=== PATIENT | male | born 1960 | race Caucasian/White ===

== ENCOUNTER 2018-12-02 14:47 | Inpatient (IN) | payer MEDICARE ==
--- NOTE | 2018-12-02 15:19 | ED ---
General Adult HPI - General Chief complaint: Skin/Abscess/Foreign Body Stated complaint: Rash Time Seen by Provider: 12/02/18 15:01 Source: patient Mode of arrival: ambulatory Limitations: no limitations - History of Present Illness Initial comments: Dictation was produced using [employer] dictation software. please excuse any grammatical, word or spelling errors. Chief Complaint: 58-year-old male presents with chief complaint of rash. History of Present Illness: 88-year-old male who presents with a rash since last night. Patient states the rash is localized to his bilateral axilla's and bilateral groins. She has no known changes in his medications recently. Patient has no other symptoms at this time. He states the rashes localized to these areas. He states they're pruritic. Denies any abdominal pain. Denies a ny rashes in the mouth. Patient denies ever having had a rash like this in the past The ROS documented in this emergency department record has been reviewed and confirmed by me. Those systems with pertinent positive or negative responses have been documented in the HPI. All other systems are other negative and/or noncontributory. PHYSICAL EXAM: General Impression: Alert and oriented x3, not in acute distress HEENT: Normocephalic atraumatic, extra-ocular movements intact, pupils equal and reactive to light bilaterally, mucous membranes moist. Cardiovascular: Heart regular rate and rhythm, S1&S2 audible, no murmurs, rubs or gallops Chest: Lungs clear to auscultation bilaterally, no rhonchi, no wheeze, no rales Abdomen: Bowel sounds present, abdomen soft, non-tender, non-distended, no organomegaly Musculoskeletal: Pulses present and equal in all extremities, no peripheral edema Motor: no focal deficits noted Neurological: CN II-XII grossly intact, no focal motor or sensory deficits noted Skin: Erythematous well-circumscribed lesions localized to the bilateral axilla causing groins. They do appear to be slightly targetoid. Psych: Normal affect and mood ED course: 58-year-old male presents with acute rash. Clinical presentation consistent with urticaria versus erythema multiforme minor signs upon arrival shows blood pressure 87/50, rest of vital signs within acceptable limits. Review blood pressure confirms low blood pressure. Laboratory evaluation obtained. Patient is leukocytosis 0.4, quite panel unremarkable. Metabolic panel is negative. Patient does have mild hyperglycemia 157. Urinalysis shows no significant findings. Chest x-ray is nonacute. Given history of beta kevan ingestion 1 hour prior to arrival there is concern of beta kevan toxicity. Patient given intravenous fluids, glucagon atropine. His blood pressures improved. Patient is otherwise normotensive. Patient case discussed with Dr. Joie [facility] who is willing to accept patients care. We'll admit patient to cardiac telemetry. I believe his rash is secondary to urticaria versus erythema multiforme minor. Highly doubt that patient's rash somehow related to his hypotension and bradycardia. Cardiology will be consulted. EKG interpretation: Ventricular rate 40, sinus bradycardia, AL interval 184, care is 104, QTc 502. - Related Data Home Medications Medication Instructions Recorded Confirmed Atorvastatin [Lipitor] 10 mg PO DAILY 12/02/18 12/02/18 Hydrocodone/Acetaminophen [[place] 1 tab PO TID PRN 12/02/18 12/02/18 10-325] Metoprolol Tartrate [Lopressor] 50 mg PO BID 12/02/18 12/02/18 Multivitamins, Thera [Multivitamin 1 tab PO DAILY 12/02/18 12/02/18 (formulary)] Pseudoephedrine HCl [Sudafed] 30 mg PO Q4HR PRN 12/02/18 12/02/18 Allergies Allergy/AdvReac Type Severity Reaction Status Date / Time No Known Allergies Allergy Verified 12/02/18 14:58 Review of Systems ROS Statement: Those systems with pertinent positive or pertinent negative responses have been documented in the HPI. ROS Other: All systems not noted in ROS Statement are negative. Past Medical History Past Medical History: GERD/Reflux, Hypertension Additional Past Medical History / Comment(s): DDD History of Any Multi-Drug Resistant Organisms: None Reported Past Surgical History: Orthopedic Surgery Past Psychological History: No Psychological Hx Reported Smoking Status: Former smoker Past Alcohol Use History: None Reported Past Drug Use History: None Reported General Exam Limitations: no limitations Course Vital Signs 12/02/18 14:56 Temperature 98.2 F Pulse Rate 78 Respiratory 18 Rate Blood Pressure 87/58 O2 Sat by Pulse 95 Oximetry Medical Decision Making - Lab Data Result diagrams: 12/02/18 16:12 12/02/18 16:12 Lab Results 12/02/18 12/02/18 12/02/18 Range/Units 16:12 16:12 16:12 WBC 17.4 H (3.8-10.6) k/uL RBC 4.65 (4.30-5.90) m/uL Hgb 15.0 (13.0-17.5) gm/dL Hct 44.2 (39.0-53.0) % MCV 95.0 (80.0-100.0) fL MCH 32.3 (25.0-35.0) pg MCHC 34.0 (31.0-37.0) g/dL RDW 12.9 (11.5-15.5) % Plt Count 229 (150-450) k/uL Neutrophils % 89 % Lymphocytes % 6 % Monocytes % 4 % Eosinophils % 0 % Basophils % 0 % Neutrophils # 15.6 H (1.3-7.7) k/uL Lymphocytes # 1.0 (1.0-4.8) k/uL Monocytes # 0.6 (0-1.0) k/uL Eosinophils # 0.1 (0-0.7) k/uL Basophils # 0.1 (0-0.2) k/uL PT 10.2 (9.0-12.0) sec INR 0.9 (<1.2) APTT 22.5 (22.0-30.0) sec Sodium 136 L (137-145) mmol/L Potassium 4.0 (3.5-5.1) mmol/L Chloride 105 (98-107) mmol/L Carbon Dioxide 23 (22-30) mmol/L Anion Gap 8 mmol/L BUN 14 (9-20) mg/dL Creatinine 1.25 (0.66-1.25) mg/dL Est GFR (CKD-EPI)AfAm 74 (>60 ml/min/1.73 sqM) Est GFR (CKD-EPI)NonAf 64 (>60 ml/min/1.73 sqM) Glucose 157 H (74-99) mg/dL Calcium 8.7 (8.4-10.2) mg/dL Magnesium (1.6-2.3) mg/dL Urine Color Urine Appearance (Clear) Urine pH (5.0-8.0) Ur Specific Adams (1.001-1.035) Urine Protein (Negative) Urine Glucose (UA) (Negative) Urine Ketones (Negative) Urine Blood (Negative) Urine Nitrite (Negative) Urine Bilirubin (Negative) Urine Urobilinogen (<2.0) mg/dL Ur Leukocyte Esterase (Negative) Urine RBC (0-5) /hpf Urine WBC (0-5) /hpf Ur Squamous Epith Cells (0-4) /hpf Urine Mucus (None) /hpf 12/02/18 12/02/18 Range/Units 16:12 16:17 WBC (3.8-10.6) k/uL RBC (4.30-5.90) m/uL Hgb (13.0-17.5) gm/dL Hct (39.0-53.0) % MCV (80.0-100.0) fL MCH (25.0-35.0) pg MCHC (31.0-37.0) g/dL RDW (11.5-15.5) % Plt Count (150-450) k/uL Neutrophils % % Lymphocytes % % Monocytes % % Eosinophils % % Basophils % % Neutrophils # (1.3-7.7) k/uL Lymphocytes # (1.0-4.8) k/uL Monocytes # (0-1.0) k/uL Eosinophils # (0-0.7) k/uL Basophils # (0-0.2) k/uL PT (9.0-12.0) sec INR (<1.2) APTT (22.0-30.0) sec Sodium (137-145) mmol/L Potassium (3.5-5.1) mmol/L Chloride (98-107) mmol/L Carbon Dioxide (22-30) mmol/L Anion Gap mmol/L BUN (9-20) mg/dL Creatinine (0.66-1.25) mg/dL Est GFR (CKD-EPI)AfAm (>60 ml/min/1.73 sqM) Est GFR (CKD-EPI)NonAf (>60 ml/min/1.73 sqM) Glucose (74-99) mg/dL Calcium (8.4-10.2) mg/dL Magnesium 2.0 (1.6-2.3) mg/dL Urine Color Yellow Urine Appearance Clear (Clear) Urine pH 6.5 (5.0-8.0) Ur Specific Adams 1.019 (1.001-1.035) Urine Protein Trace H (Negative) Urine Glucose (UA) Negative (Negative) Urine Ketones Negative (Negative) Urine Blood Small H (Negative) Urine Nitrite Negative (Negative) Urine Bilirubin Negative (Negative) Urine Urobilinogen <2.0 (<2.0) mg/dL Ur Leukocyte Esterase Negative (Negative) Urine RBC 9 H (0-5) /hpf Urine WBC 1 (0-5) /hpf Ur Squamous Epith Cells <1 (0-4) /hpf Urine Mucus Few H (None) /hpf Disposition Clinical Impression: Hypotension, Bradycardia, Rash Disposition: ADMITTED IP TO THIS HOSP Condition: Fair Referrals: Dillon Maharaj DO [Primary Care Provider] - 1-2 days Decision Time: 17:49
[2018-12-02] MEDS ORDERED: SODIUM CHLORIDE 0.9% 1,000 ML IV STA (16:04)
[2018-12-02 16:29] LABS: Basophils # (A) 0.1 k/uL (0-0.2); Basophils % (A) 0 %; Eosinophils # (A) 0.1 k/uL (0-0.7); Eosinophils % (A) 0 %; HCT 44.2 % (39.0-53.0); Lymphocytes % (A) 6 %; MCH 32.3 pg (25.0-35.0); Mean Platelet Volume 6.8; Monocytes # (A) 0.6 k/uL (0-1.0); Monocytes % (A) 4 %; Neutrophils # (A) 15.6 k/uL (1.3-7.7); Neutrophils % (A) 89 %; Platelet Count 229 k/uL (150-450); RBC 4.65 m/uL (4.30-5.90); RDW 12.9 % (11.5-15.5); WBC 17.4 k/uL (3.8-10.6)
[2018-12-02 16:38] LABS: INR 0.9 (<1.2); Partial Thromboplastin Time 22.5 sec (22.0-30.0); Prothrombin Time 10.2 sec (9.0-12.0)
[2018-12-02] MEDS ORDERED: METOCLOPRAMIDE 5 MG/ML 2 ML VIAL IVP STA (16:39)
[2018-12-02] MEDS ORDERED: GLUCAGON 1 MG/ML VIAL IVP STA (16:39)
[2018-12-02] MEDS ORDERED: ATROPINE SULFATE 0.1 MG/ML 10ML SYRINGE IV STA (16:40)
[2018-12-02 16:44] LABS: Calcium 8.7 mg/dL (8.4-10.2)
[2018-12-02 17:07] LABS: Appearance,Urine Clear (Clear); Bilirubin,Urine Negative (Negative); Blood,Urine Small (Negative); Color,Urine Yellow; Glucose,Urine (UA) Negative (Negative); Ketones,Urine Negative (Negative); Leukocyte Esterase,Urine Negative (Negative); Mucus,Urine Few /hpf; Nitrite,Urine Negative (Negative); PH, Urine 6.5 (5.0-8.0); Protein,Urine Trace (Negative); RBC,Urine 9 /hpf (0-5); Specific Gravity,Urine 1.019 (1.001-1.035); Squamous Epithelial Cell,Urine <1 /hpf (0-4); Urobilinogen,Urine <2.0 mg/dL (<2.0); WBC,Urine 1 /hpf (0-5)
--- NOTE | 2018-12-02 17:20 | XR ---
EXAMINATION TYPE: XR chest 2V DATE OF EXAM: 12/02/2018 COMPARISON: NONE HISTORY: Abdominal rash. Hypotension. TECHNIQUE: Frontal and lateral views of the chest are obtained. FINDINGS: Heart and mediastinum are normal. Lungs are clear. Diaphragm is normal. There is minor spu rring in the thoracic spine. There are chest leads. IMPRESSION: No active cardiopulmonary disease. Normal heart.
[2018-12-02] MEDS ORDERED: ACETAMINOPHEN TAB 325 MG TAB PO PRN (17:50)
[2018-12-02] MEDS ORDERED: NALOXONE 0.4 MG/ML 1 ML VIAL IV PRN (17:50)
[2018-12-02] MEDS: SODIUM CHLORIDE 0.9% 1,000 ML IV SCH (18:03)
[2018-12-02] MEDS ORDERED: HYDROcodone/APAP 5-325MG 1 EACH TAB PO STA (19:32)
[2018-12-02 21:23] VITALS: BMI 33.0
--- NOTE | 2018-12-02 23:52 | P.HPIM ---
History of Present Illness H&P Date: 12/02/18 The patient is a 58 yo M with a PMH of HTN, HLD, spinal DJD (on [place] 10 at home) presented to the ED w/ complaints of a pruritic rash. The patient reports that he suddenly developed an intensely pruritic rash over his bilateral axilla yesterday at around 5 pm. The rash was painless. He reports never having a similar rash in the past. He denied using any new skin products or any new medications. The patient then earlier today noted a similar rash in his groin region which was also pruritic along with scrotal swelling. He denied testicular, penile pain, or urinary complaints. Denied penile discharge or any other cutaneous eruption. Denied mouth ulcers or oral pain. The patient reports using multiple antibiotic ointment creams that he had at home without much relief of his symptoms. The patient noted feeling somewhat ill earlier today prior to coming into the ED. His at the bedside reported that his lips were pale. He denied chest pain, SOB, cough, nausea, vomiting, or abdominal pain. Denied sick contacts or recent travel. The patient was noted to be bradycardic in the ED w/ the lowest documented HR of 47 along with hypotension (86/49). He reports taking Lopressor at home for his HTN which he has been on for years. He denied any prior hx of bradycardia or hypotension. The patient underwent an extensive evaluation in the ED w/ EKG showing sinus bradycardia at 48 bpm along with prolonged QTC. Chest x-ray was unremarkable and a UA revealed some RBCs with an FOBT negative. WBC count was 17.4, hemoglobin 15, platelets 229, sodium 136, potassium 4.0, BUN 14, creatinine 1.5. Review of Systems Pertinent positives and negatives as discussed in HPI, a complete review of systems was performed and all other systems are negative. Past Medical History Past Medical History: GERD/Reflux, Hypertension Additional Past Medical History / Comment(s): DDD History of Any Multi-Drug Resistant Organisms: None Reported Past Surgical History: Orthopedic Surgery Additional Past Surgical History / Comment(s): knee surgery Past Anesthesia/Blood Transfusion Reactions: No Reported Reaction Past Psychological History: Anxiety Smoking Status: Former smoker Past Alcohol Use History: None Reported Past Drug Use History: None Reported - Past Family History Father Family Medical History: No Reported History Mother Family Medical History: COPD Additional Family Medical History / Comment(s): from septic shock Medications and Allergies Home Medications Medication Instructions Recorded Confirmed Type Atorvastatin [Lipitor] 10 mg PO DAILY 12/02/18 12/02/18 History Hydrocodone/Acetaminophen [[place] 1 tab PO TID PRN 12/02/18 12/02/18 History 10-325] Metoprolol Tartrate [Lopressor] 50 mg PO BID 12/02/18 12/02/18 History Multivitamins, Thera [Multivitamin 1 tab PO DAILY 12/02/18 12/02/18 History (formulary)] Pseudoephedrine HCl [Sudafed] 30 mg PO Q4HR PRN 12/02/18 12/02/18 History Allergies Allergy/AdvReac Type Severity Reaction Status Date / Time No Known Allergies Allergy Verified 12/02/18 14:58 Physical Exam Vitals: Vital Signs Temp Pulse Pulse Resp BP BP Pulse Ox 12/02/18 21:12 98.7 F 51 L 16 118/61 96 12/02/18 20:57 98.3 F 53 L 16 115/62 96 12/02/18 19:00 57 L 18 120/72 98 12/02/18 18:00 62 18 125/72 98 12/02/18 17:52 60 16 114/67 98 12/02/18 17:45 98.2 F 56 L 16 114/67 98 12/02/18 17:30 53 L 16 103/68 98 12/02/18 17:15 60 16 104/61 98 12/02/18 17:00 50 L 16 110/59 98 12/02/18 16:45 58 L 16 106/61 98 12/02/18 16:30 49 L 16 84/52 98 12/02/18 16:15 48 L 16 92/50 98 12/02/18 15:57 50 L 16 84/44 98 12/02/18 15:51 47 L 18 86/49 98 12/02/18 14:56 98.2 F 78 18 87/58 95 Intake and Output 12/02/18 12/02/18 12/03/18 14:59 22:59 06:59 Intake Total 100 Balance 100 Intake: IV 100 Sodium Chloride 0.9% 1, 100 000 ml @ 100 mls/hr IV . Q10H [facility] Rx#:[id number] Other: Weight 83.915 kg General: non toxic, no distress, appears at stated age, obese Derm: Targetoid raised mildly erythematous lesions involving both axilla and groin, non-tender, no skin breakdown noted, scrotal swelling w/ no tenderness, no penile discharge or lesions noted Head: atraumatic, normocephalic, symmetric Eyes: EOMI, no lid lag, anicteric sclera, pupils equal round reactive to light ENT: Nose and ears atraumatic, no thrush, no pharyngeal erythema Neck: No thyromegaly, no cervical lymphadenopathy, trachea midline, supple Mouth: no lip lesion, mucus membranes moist Cardiovascular: S1S2 reg, bradycardia, no murmur, positive posterior tibial pulse bilateral, no edema, capillary refill less than 2 seconds Lungs: CTA bilateral, no rhonchi, no rales , no accessory muscle use Abdominal: soft, nontender to palpation, no guarding, no appreciable organomegaly, normal bowel sounds Ext: no gross muscle atrophy, muscle strength 5 out of 5 in all 4 extremities grossly, no contractures, Neuro: CN II-XI grossly intact, light touch intact all 4 extremities, finger to nose within normal limits, Psych: Alert, oriented, appropriate affect Results CBC & Chem 7: 12/02/18 16:12 12/02/18 16:12 Labs: Abnormal Lab Results - Last 24 Hours (Table) 12/02/18 12/02/18 12/02/18 Range/Units 16:12 16:12 16:17 WBC 17.4 H (3.8-10.6) k/uL Neutrophils # 15.6 H (1.3-7.7) k/uL Sodium 136 L (137-145) mmol/L Glucose 157 H (74-99) mg/dL Urine Protein Trace H (Negative) Urine Blood Small H (Negative) Urine RBC 9 H (0-5) /hpf Urine Mucus Few H (None) /hpf Thrombosis Risk Factor Assmnt - Choose All That Apply Any of the Below Risk Factors Present?: Yes Each Factor Represents 1 point: Age 41-60 years, Obesity (BMI >25) Other Risk Factors: No Other congenital or acquired thrombophilia - If yes, enter type in comment: No Thrombosis Risk Factor Assessment Total Risk Factor Score: 2 Thrombosis Risk Factor Assessment Level: Low Risk Assessment and Plan Plan: Rash, likely erythema multiforme of unknown etiology -Will give topical steroids and anti-histamines -Monitor rash for now Bradycardia and hypotension -Improved, s/p atropine -Monitor for now, possibly secondary to erythema multiforme -No other obvious source of infection noted -Will DC Lopressor for now -C/w IVFs Leukocytosis -Likely secondary to EM -Monitor CBC for now -No clear source of infection noted HLD -C/w home meds DVT prophylaxis -Heparin The patient is admitted with an anticipated greater than 2 midnight stay for evaluation of erythema multiforma CODE STATUS: Full Code Discussed with: Patient, Anticipated discharge date: 2-[address]: Home A total of 35 minutes was spent on the care of this complex patient more than 50% of the time was spent in counseling and care coordination.
[2018-12-02] MEDS ORDERED: LORATADINE 10 MG TAB PO STA (23:53)
[2018-12-03] MEDS: TRIAMCINOLONE ACET 0.1% OINTMENT 15 GM TUBE TOPICAL SCH ×4 (00:40→21:13)
[2018-12-03] MEDS: HEPARIN SODIUM,PORCINE 5,000 UNIT/ML 1 ML VIAL SQ SCH ×4 (00:40→23:12)
[2018-12-03 06:53] LABS: African American GFR (CKD) >90 (>60 ml/min/1.73 sqM); Anion Gap 9 mmol/L; Blood Urea Nitrogen 19 mg/dL (9-20); Calcium 8.3 mg/dL (8.4-10.2); Carbon Dioxide 22 mmol/L (22-30); Chloride 107 mmol/L (98-107); Glucose 106 mg/dL (74-99); Potassium 3.3 mmol/L (3.5-5.1); Sodium 138 mmol/L (137-145)
[2018-12-03 06:55] LABS: HCT 38.1 % (39.0-53.0); MCH 32.5 pg (25.0-35.0); MCHC 34.1 g/dL (31.0-37.0); MCV 95.2 fL (80.0-100.0); Mean Platelet Volume 7.1; Platelet Count 197 k/uL (150-450); WBC 12.6 k/uL (3.8-10.6)
--- NOTE | 2018-12-03 07:53 | P.CRDCN ---
History of Present Illness History of present illness: This is Claribel Garcia PA-C dictating a consult on this patient The patient was interviewed and examined by me as well as by Dr. Tan Case discussed with Dr. Tan and he agrees with the plan of care IMPRESSION / ASSESSMENT: PLAN: HPI Patient is a 58-year-old male who presented with a rash. On presentation he was found to be hypotensive and bradycardic, pulse is in the high 40s to low 50s and blood pressures in the 80s over 40s. She takes metoprolol titrate 50 mg twice a day at home. EKG showed sinus bradycardia, converted T waves in the lateral precordial leads. Chest x-ray was negative for acute process. Blood pressure has improved, he has been in the 120s and 130s systolic over 50s to 60s diastolic. Pulses been in the 60s. ROS: No fevers, chills or rigors, no cough, phlegm or expectoration, no nausea, vomiting or diarrhea, no hematuria, dysuria, no musculoskeletal complaints, no strokes or seizures, Positive for rash EXAMINATION: REVIEW OF LABS, ECG & MEDICAL DATA WBC 12.6, hemoglobin 13, platelets 197, potassium 3.3, BUN 19, creatinine 0.87 Past Medical History Past Medical History: GERD/Reflux, Hypertension Additional Past Medical History / Comment(s): DDD History of Any Multi-Drug Resistant Organisms: None Reported Past Surgical History: Orthopedic Surgery Additional Past Surgical History / Comment(s): knee surgery Past Anesthesia/Blood Transfusion Reactions: No Reported Reaction Past Psychological History: Anxiety Smoking Status: Former smoker Past Alcohol Use History: None Reported Past Drug Use History: None Reported - Past Family History Father Family Medical History: No Reported History Mother Family Medical History: COPD Additional Family Medical History / Comment(s): from septic shock Medications and Allergies Home Medications Medication Instructions Recorded Confirmed Type Atorvastatin [Lipitor] 10 mg PO DAILY 12/02/18 12/02/18 History Hydrocodone/Acetaminophen [[place]sea 1 tab PO TID PRN 12/02/18 12/02/18 History 10-325] Metoprolol Tartrate [Lopressor] 50 mg PO BID 12/02/18 12/02/18 History Multivitamins, Thera [Multivitamin 1 tab PO DAILY 12/02/18 12/02/18 History (formulary)] Pseudoephedrine HCl [Sudafed] 30 mg PO Q4HR PRN 12/02/18 12/02/18 History Allergies Allergy/AdvReac Type Severity Reaction Status Date / Time No Known Allergies Allergy Verified 12/02/18 14:58 Physical Exam Vitals: Vital Signs Temp Pulse Pulse Resp BP BP Pulse Ox 12/03/18 07:38 97.7 F 78 16 129/59 95 12/03/18 04:00 99.3 F 63 17 130/68 96 12/03/18 00:00 52 L 16 118/58 97 12/02/18 21:12 98.7 F 51 L 16 118/61 96 12/02/18 20:57 98.3 F 53 L 16 115/62 96 12/02/18 19:00 57 L 18 120/72 98 12/02/18 18:00 62 18 125/72 98 12/02/18 17:52 60 16 114/67 98 12/02/18 17:45 98.2 F 56 L 16 114/67 98 12/02/18 17:30 53 L 16 103/68 98 12/02/18 17:15 60 16 104/61 98 12/02/18 17:00 50 L 16 110/59 98 12/02/18 16:45 58 L 16 106/61 98 12/02/18 16:30 49 L 16 84/52 98 12/02/18 16:15 48 L 16 92/50 98 12/02/18 15:57 50 L 16 84/44 98 12/02/18 15:51 47 L 18 86/49 98 12/02/18 14:56 98.2 F 78 18 87/58 95 Intake and Output 12/02/18 12/03/18 12/03/18 22:59 06:59 14:59 Intake Total 100 Output Total 450 Balance 100 -450 Intake: IV 100 Sodium Chloride 0.9% 1, 100 000 ml @ 100 mls/hr IV . Q10H [facility] Rx#:[id number] Output: Urine 450 Other: Voiding Method Toilet Weight 87.3 kg Results 12/03/18 06:04 12/03/18 06:04 Coagulation 12/02/18 Range/Units 16:12 PT 10.2 (9.0-12.0) sec APTT 22.5 (22.0-30.0) sec CBC 12/02/18 12/03/18 Range/Units 16:12 06:04 WBC 17.4 H 12.6 H (3.8-10.6) k/uL RBC 4.65 4.00 L (4.30-5.90) m/uL Hgb 15.0 13.0 (13.0-17.5) gm/dL Hct 44.2 38.1 L (39.0-53.0) % Plt Count 229 197 (150-450) k/uL Comprehensive Metabolic Panel 12/02/18 12/03/18 Range/Units 16:12 06:04 Sodium 136 L 138 (137-145) mmol/L Potassium 4.0 3.3 L (3.5-5.1) mmol/L Chloride 105 107 (98-107) mmol/L Carbon Dioxide 23 22 (22-30) mmol/L BUN 14 19 (9-20) mg/dL Creatinine 1.25 0.87 (0.66-1.25) mg/dL Glucose 157 H 106 H (74-99) mg/dL Calcium 8.7 8.3 L (8.4-10.2) mg/dL Current Medications Generic Name Dose Route Start Last Admin Trade Name Freq PRN Reason Stop Dose Admin Acetaminophen 650 mg 12/02/18 17:50 Tylenol Tab PO Q6HR PRN Mild Pain or Fever > 100.5 Atorvastatin Calcium 10 mg 12/03/18 09:00 Lipitor PO DAILY KAYLEIGH Heparin Sodium (Porcine) 5,000 unit 12/03/18 00:00 12/03/18 00:40 Heparin SQ 5,000 unit Q8HR KAYLEIGH Administration Sodium Chloride 1,000 mls @ 100 mls/hr 12/02/18 18:00 12/02/18 18:03 Saline 0.9% IV 100 mls/hr .Q10H KAYLEIGH Administration Loratadine 10 mg 12/03/18 09:00 Claritin PO DAILY PRN Allergy Symptoms Naloxone HCl 0.2 mg 12/02/18 17:50 Narcan IV Q2M PRN Opioid Reversal Triamcinolone Acetonide 1 applic 12/03/18 00:00 12/03/18 00:40 Kenalog TOPICAL 1 applic BID KAYLEIGH Administration Intake and Output 12/02/18 12/03/18 12/03/18 22:59 06:59 14:59 Intake Total 100 Output Total 450 Balance 100 -450 Intake: IV 100 Sodium Chloride 0.9% 1, 100 000 ml @ 100 mls/hr IV . Q10H [facility] Rx#:[id number] Output: Urine 450 Other: Voiding Method Toilet Weight 87.3 kg 12/03/18 06:04 12/03/18 06:04
[2018-12-03] MEDS ORDERED: POTASSIUM CHLORIDE ER 20 MEQ TAB.ER PO STA (08:26)
[2018-12-03] MEDS: ATORVASTATIN 10 MG TAB PO SCH (08:39)
[2018-12-03] MEDS: SODIUM CHLORIDE 0.9% 1,000 ML IV SCH ×2 (08:39→11:44)
[2018-12-03] MEDS ORDERED: ONDANSETRON 4 MG/2 ML VIAL IVP PRN (08:46)
[2018-12-03] MEDS: PANTOPRAZOLE 40 MG TABLET PO SCH (08:52)
[2018-12-03] MEDS: CALCIUM CARBONATE 500 MG CHEWABLE PO PRN ×2 (08:52→16:44)
[2018-12-03] MEDS ORDERED: LORATADINE 10 MG TAB PO PRN (09:00)
--- NOTE | 2018-12-03 12:34 | P.CRDCN ---
<Claribel Garcia - Last Filed: 12/03/18 12:24> History of Present Illness History of present illness: This is Claribel Garcia PA-C dictating a consult on this patient The patient was interviewed and examined by me as well as by Dr. Tan Case discussed with Dr. Tan and he agrees with the plan of care IMPRESSION / ASSESSMENT: Bradycardia and hypotension likely secondary to metoprolol, blood pressure and heart rate improved with metoprolol on hold Hypertension, blood pressure stable without the metoprolol Dyslipidemia TSH normal PLAN: discontinue metoprolol If his blood pressure is elevated without the metoprolol, consider starting KWAKU inhibitor Outpatient echocardiogram for evaluation of cardiac murmur HPI Patient is a 58-year-old male with a past medical history of hypertension and dyslipidemia who presented with a rash. On presentation he was found to be hypotensive and bradycardic, pulse is in the high 40s to low 50s and blood pressures in the 80s over 40s. The patient felt slightly dizzy at that time. He takes metoprolol titrate 50 mg twice a day at home. States that he was increased from 25 mg twice a day to 50 mg twice a day a few months ago and has felt fatigued since. He has also had intermittent dizzy spells. No syncope. No chest pain or shortness of breath. EKG showed sinus bradycardia, inverted T waves in the lateral precordial leads. Chest x-ray was negative for acute process. His metoprolol has been held. Blood pressure has improved, he has been in the 120s and 130s systolic over 50s to 60s diastolic. Heart rate has been in the 60s-80s. Patient seen and examined sitting in bed. States his rash is getting worse. Denies any dizziness, lightheadedness, chest pain or shortness of breath. Has been getting up and walking around without any dizzi ness. No syncopal spells. Patient is a nondiabetic and has no family history of heart disease ROS: No fevers, chills or rigors, no cough, phlegm or expectoration, no nausea, vomiting or diarrhea, no hematuria, dysuria, no musculoskeletal complaints, no strokes or seizures, Positive for rash EXAMINATION: Temperature 97.7F, pulse 78, respirations exceeding, blood pressure 129/59, oxygen saturation 95% on room air Patient seen and examined sitting up at the side of the bed, in no acute distress Lungs are clear to auscultation bilaterally Heart is regular, soft systolic murmur noted No elevated JVD No lower extremity edema Abdomen soft REVIEW OF LABS, ECG & MEDICAL DATA WBC 12.6, hemoglobin 13, platelets 197, potassium 3.3, BUN 19, creatinine 0.87 TSH was within normal limits at 1.84 Past Medical History Past Medical History: GERD/Reflux, Hypertension Additional Past Medical History / Comment(s): DDD History of Any Multi-Drug Resistant Organisms: None Reported Past Surgical History: Orthopedic Surgery Additional Past Surgical History / Comment(s): knee surgery Past Anesthesia/Blood Transfusion Reactions: No Reported Reaction Past Psychological History: Anxiety Smoking Status: Former smoker Past Alcohol Use History: None Reported Past Drug Use History: None Reported - Past Family History Father Family Medical History: No Reported History Mother Family Medical History: COPD Additional Family Medical History / Comment(s): from septic shock Medications and Allergies Home Medications Medication Instructions Recorded Confirmed Type Atorvastatin [Lipitor] 10 mg PO DAILY 12/02/18 12/02/18 History Hydrocodone/Acetaminophen [[place] 1 tab PO TID PRN 12/02/18 12/02/18 History 10-325] Metoprolol Tartrate [Lopressor] 50 mg PO BID 12/02/18 12/02/18 History Multivitamins, Thera [Multivitamin 1 tab PO DAILY 12/02/18 12/02/18 History (formulary)] Pseudoephedrine HCl [Sudafed] 30 mg PO Q4HR PRN 12/02/18 12/02/18 History Allergies Allergy/AdvReac Type Severity Reaction Status Date / Time No Known Allergies Allergy Verified 12/02/18 14:58 Physical Exam Vitals: Vital Signs Temp Pulse Pulse Resp BP BP Pulse Ox 12/03/18 11:45 70 16 134/70 95 12/03/18 07:38 97.7 F 78 16 129/59 95 12/03/18 04:00 99.3 F 63 17 130/68 96 12/03/18 00:00 52 L 16 118/58 97 12/02/18 21:12 98.7 F 51 L 16 118/61 96 12/02/18 20:57 98.3 F 53 L 16 115/62 96 12/02/18 19:00 57 L 18 120/72 98 12/02/18 18:00 62 18 125/72 98 12/02/18 17:52 60 16 114/67 98 12/02/18 17:45 98.2 F 56 L 16 114/67 98 12/02/18 17:30 53 L 16 103/68 98 12/02/18 17:15 60 16 104/61 98 12/02/18 17:00 50 L 16 110/59 98 12/02/18 16:45 58 L 16 106/61 98 12/02/18 16:30 49 L 16 84/52 98 12/02/18 16:15 48 L 16 92/50 98 12/02/18 15:57 50 L 16 84/44 98 12/02/18 15:51 47 L 18 86/49 98 12/02/18 14:56 98.2 F 78 18 87/58 95 Intake and Output 12/02/18 12/03/18 12/03/18 22:59 06:59 14:59 Intake Total 100 60 Output Total 450 Balance 100 -450 60 Intake: IV 100 Sodium Chloride 0.9% 1, 100 000 ml @ 100 mls/hr IV . Q10H [facility] Rx#:[id number] Oral 60 Output: Urine 450 Other: Voiding Method Toilet Weight 87.3 kg Results 12/03/18 06:04 12/03/18 06:04 Coagulation 12/02/18 Range/Units 16:12 PT 10.2 (9.0-12.0) sec APTT 22.5 (22.0-30.0) sec CBC 12/02/18 12/03/18 Range/Units 16:12 06:04 WBC 17.4 H 12.6 H (3.8-10.6) k/uL RBC 4.65 4.00 L (4.30-5.90) m/uL Hgb 15.0 13.0 (13.0-17.5) gm/dL Hct 44.2 38.1 L (39.0-53.0) % Plt Count 229 197 (150-450) k/uL Comprehensive Metabolic Panel 12/02/18 12/03/18 Range/Units 16:12 06:04 Sodium 136 L 138 (137-145) mmol/L Potassium 4.0 3.3 L (3.5-5.1) mmol/L Chloride 105 107 (98-107) mmol/L Carbon Dioxide 23 22 (22-30) mmol/L BUN 14 19 (9-20) mg/dL Creatinine 1.25 0.87 (0.66-1.25) mg/dL Glucose 157 H 106 H (74-99) mg/dL Calcium 8.7 8.3 L (8.4-10.2) mg/dL Current Medications Generic Name Dose Route Start Last Admin Trade Name Freq PRN Reason Stop Dose Admin Acetaminophen 650 mg 12/02/18 17:50 Tylenol Tab PO Q6HR PRN Mild Pain or Fever > 100.5 Atorvastatin Calcium 10 mg 12/03/18 09:00 12/03/18 08:39 Lipitor PO 10 mg DAILY [facility] Administration Calcium Carbonate/Glycine 500 mg 12/03/18 08:46 12/03/18 08:52 Tums PO 500 mg QID PRN Administration Heartburn Heparin Sodium (Porcine) 5,000 unit 12/03/18 00:00 12/03/18 08:39 Heparin SQ 5,000 unit Q8HR [facility] Administration Sodium Chloride 1,000 mls @ 100 mls/hr 12/02/18 18:00 12/03/18 11:44 Saline 0.9% IV 100 mls/hr .Q10H [facility] Administration Loratadine 10 mg 12/03/18 09:00 Claritin PO DAILY PRN Allergy Symptoms Naloxone HCl 0.2 mg 12/02/18 17:50 Narcan IV Q2M PRN Opioid Reversal Ondansetron HCl 4 mg 12/03/18 08:46 12/03/18 08:52 Zofran IVP 4 mg Q6H PRN Administration Nausea Pantoprazole Sodium 40 mg 12/03/18 09:00 12/03/18 08:52 Protonix PO 40 mg AC-BRKFST [facility] Administration Triamcinolone Acetonide 1 applic 12/03/18 00:00 12/03/18 08:40 Kenalog TOPICAL 1 applic BID [facility] Administration Intake and Output 12/02/18 12/03/18 12/03/18 22:59 06:59 14:59 Intake Total 100 60 Output Total 450 Balance 100 -450 60 Intake: IV 100 Sodium Chloride 0.9% 1, 100 000 ml @ 100 mls/hr IV . Q10H [facility] Rx#:[id number] Oral 60 Output: Urine 450 Other: Voiding Method Toilet Weight 87.3 kg 12/03/18 06:04 12/03/18 06:04 <Filiberto Tan - Last Filed: 12/03/18 14:40> History of Present Illness History of present illness: Patient interviewed and examined Patient is taking metoprolol for hypertension. He is bradycardic in the high 40s and low 50s We'll stop metoprolol and start low-dose KWAKU inhibitor as starting 5 g by mouth daily and watch his blood pressure He will go home from a cardiac standpoint Will order a lipid panel today prior to discharge We'll see him in the office in 2-3 weeks for blood pressure follow-up He should seek a dermatologic opinion regarding his skin rash Physical Exam Vitals: Vital Signs Temp Pulse Pulse Resp BP BP Pulse Ox 12/03/18 11:45 70 16 134/70 95 12/03/18 07:38 97.7 F 78 16 129/59 95 12/03/18 04:00 99.3 F 63 17 130/68 96 12/03/18 00:00 52 L 16 118/58 97 12/02/18 21:12 98.7 F 51 L 16 118/61 96 12/02/18 20:57 98.3 F 53 L 16 115/62 96 12/02/18 19:00 57 L 18 120/72 98 12/02/18 18:00 62 18 125/72 98 12/02/18 17:52 60 16 114/67 98 12/02/18 17:45 98.2 F 56 L 16 114/67 98 12/02/18 17:30 53 L 16 103/68 98 12/02/18 17:15 60 16 104/61 98 12/02/18 17:00 50 L 16 110/59 98 12/02/18 16:45 58 L 16 106/61 98 12/02/18 16:30 49 L 16 84/52 98 12/02/18 16:15 48 L 16 92/50 98 12/02/18 15:57 50 L 16 84/44 98 12/02/18 15:51 47 L 18 86/49 98 12/02/18 14:56 98.2 F 78 18 87/58 95 Intake and Output 12/02/18 12/03/18 12/03/18 22:59 06:59 14:59 Intake Total 100 300 Output Total 450 Balance 100 -450 300 Intake: IV 100 Sodium Chloride 0.9% 1, 100 000 ml @ 100 mls/hr IV . Q10H [facility] Rx#:[id number] Oral 300 Output: Urine 450 Other: Voiding Method Toilet # Voids 1 Weight 87.3 kg Results 12/03/18 06:04 12/03/18 06:04 Coagulation 12/02/18 Range/Units 16:12 PT 10.2 (9.0-12.0) sec APTT 22.5 (22.0-30.0) sec CBC 12/02/18 12/03/18 Range/Units 16:12 06:04 WBC 17.4 H 12.6 H (3.8-10.6) k/uL RBC 4.65 4.00 L (4.30-5.90) m/uL Hgb 15.0 13.0 (13.0-17.5) gm/dL Hct 44.2 38.1 L (39.0-53.0) % Plt Count 229 197 (150-450) k/uL Comprehensive Metabolic Panel 12/02/18 12/03/18 Range/Units 16:12 06:04 Sodium 136 L 138 (137-145) mmol/L Potassium 4.0 3.3 L (3.5-5.1) mmol/L Chloride 105 107 (98-107) mmol/L Carbon Dioxide 23 22 (22-30) mmol/L BUN 14 19 (9-20) mg/dL Creatinine 1.25 0.87 (0.66-1.25) mg/dL Glucose 157 H 106 H (74-99) mg/dL Calcium 8.7 8.3 L (8.4-10.2) mg/dL Current Medications Generic Name Dose Route Start Last Admin Trade Name Freq PRN Reason Stop Dose Admin Acetaminophen 650 mg 12/02/18 17:50 Tylenol Tab PO Q6HR PRN Mild Pain or Fever > 100.5 Atorvastatin Calcium 10 mg 12/03/18 09:00 12/03/18 08:39 Lipitor PO 10 mg DAILY [facility] Administration Calcium Carbonate/Glycine 500 mg 12/03/18 08:46 12/03/18 08:52 Tums PO 500 mg QID PRN Administration Heartburn Heparin Sodium (Porcine) 5,000 unit 12/03/18 00:00 12/03/18 08:39 Heparin SQ 5,000 unit Q8HR [facility] Administration Sodium Chloride 1,000 mls @ 100 mls/hr 12/02/18 18:00 12/03/18 11:44 Saline 0.9% IV 100 mls/hr .Q10H [facility] Administration Loratadine 10 mg 12/03/18 09:00 Claritin PO DAILY PRN Allergy Symptoms Naloxone HCl 0.2 mg 12/02/18 17:50 Narcan IV Q2M PRN Opioid Reversal Nystatin 1 applic 12/03/18 13:00 Mycostatin Oint TOPICAL BID [facility] Ondansetron HCl 4 mg 12/03/18 08:46 12/03/18 08:52 Zofran IVP 4 mg Q6H PRN Administration Nausea Pantoprazole Sodium 40 mg 12/03/18 09:00 12/03/18 08:52 Protonix PO 40 mg AC-BRKFST [facility] Administration Triamcinolone Acetonide 1 applic 12/03/18 13:00 Kenalog TOPICAL BID [facility] Intake and Output 12/02/18 12/03/18 12/03/18 22:59 06:59 14:59 Intake Total 100 300 Output Total 450 Balance 100 -450 300 Intake: IV 100 Sodium Chloride 0.9% 1, 100 000 ml @ 100 mls/hr IV . Q10H [facility] Rx#:[id number] Oral 300 Output: Urine 450 Other: Voiding Method Toilet # Voids 1 Weight 87.3 kg 12/03/18 06:04 12/03/18 06:04
[2018-12-03] MEDS ORDERED: NYSTAT-TRIAMCIN 100,000-0.1 UNIT/GM-% OINT 30 GM TUBE TOPICAL SCH (13:00)
[2018-12-03 15:16] LABS: Cholesterol 87 mg/dL (<200); HDL Cholesterol 29 mg/dL (40-60); LDL Cholesterol,Calculated 39 mg/dL (0-99); Triglycerides 93 mg/dL (<150)
[2018-12-03] MEDS: NYSTATIN 100,000 UNIT/GM OINT 30 GM TUBE TOPICAL SCH ×2 (15:54→21:13)
[2018-12-03] MEDS ORDERED: HYDROcodone/APAP 10-325MG 1 EACH TAB PO PRN (17:14)
--- NOTE | 2018-12-03 18:20 | P.PN ---
Subjective Progress Note Date: 12/03/18 (Delayed charting seen at approximately noon) Principal diagnosis: Rash Patient is a 58-year-old male past medical history of hypertension with present increase in beta kevan approximately one month ago due to poorly controlled blood pressures, dyslipidemia, and degenerative joint disease who initially presented to the ER with complaints of a pruritic rash. Patient had stated his rash started approximately 2 days prior to admission, he was using multiple antibiotic ointment creams at home without much relief. In the emergency department he was noted to be bradycardiac with the lowest heart rate documented a 47 along with hypotension with a blood pressure of 86/49. He underwent an extensive evaluation in the emergency department. EKG demonstrated sinus bradycardia at a rate of 48, chest x-ray unremarkable, urinalysis revealed some red blood cells, fecal occult blood negative, white blood cell count was 17.4, hemoglobin 15, platelets 229. His beta kevan was held. He received 1 dose of atropine in the ER with improvement in his bradycardia and blood pressure. He was admitted for further observation. He was started on a steroid cream secondary to dermatitis. Current blood pressure remained improved. He was seen by cardiology who recommended holding his beta kevan and initiating KWAKU inhibitor if needed for blood pressure control. Rash appears fungal in nature patient was started on nystatin triamcinolone cream Patient seen and examined at bedside. He states his rash For about 2 days now. Initially started in groin and axilla and has been spreading. It started after he was cleaning equipment at the [facility]. He denies any changes in soap, bathing products, deodarant, unusual chemical exposures. No chest pain, having some nausea and loose stools today. Objective - Vital Signs Vital signs: Vital Signs Temp 97.7 F 12/03/18 07:38 Pulse 66 12/03/18 16:40 Resp 18 12/03/18 16:40 BP 117/60 12/03/18 16:40 Pulse Ox 97 12/03/18 16:40 Intake & Output 12/02/18 12/03/18 12/03/18 18:59 06:59 18:59 Intake Total 100 300 Output Total 450 Balance -350 300 Weight 83.915 kg 87.3 kg Intake: IV 100 Sodium Chloride 0.9% 1, 100 000 ml @ 100 mls/hr IV . Q10H [facility] Rx#:[id number] Oral 300 Output: Urine 450 Other: Voiding Method Toilet # Voids 1 - Exam General: non toxic, no distress, appears at stated age Derm: b/l groin and axilla with erythematous rash, with definitive border that is palpable and has some crossed, clearing centrally, appears to be a ring extending outward. Head: atraumatic, normocephalic, symmetric Eyes: EOMI, no lid lag, anicteric sclera Mouth: no lip lesion, mucus membranes moist Cardiovascular: S1S2 reg, no murmur, positive posterior tibial pulse bilateral, Lungs: CTA bilateral, no rhonchi, no rales , no accessory muscle use Abdominal: soft, nontender to palpation, no guarding, no appreciable organomegaly Ext: no gross muscle atrophy, no edema, no contractures Neuro: CN II-XI grossly intact, no focal neuro deficits Psych: Alert, oriented, appropriate affect - Labs CBC & Chem 7: 12/03/18 06:04 12/03/18 06:04 Labs: Abnormal Lab Results - Last 24 Hours (Table) 12/03/18 12/03/18 12/03/18 Range/Units 06:04 06:04 06:04 WBC 12.6 H (3.8-10.6) k/uL RBC 4.00 L (4.30-5.90) m/uL Hct 38.1 L (39.0-53.0) % Potassium 3.3 L (3.5-5.1) mmol/L Glucose 106 H (74-99) mg/dL Calcium 8.3 L (8.4-10.2) mg/dL HDL Cholesterol 29 L (40-60) mg/dL Assessment and Plan Assessment: Symptomatic bradycardia suspect secondary to beta kevan -Hold beta kevan -Follow blood pressures -Cardiology recommendations appreciated -KWAKU inhibitor if blood pressure elevates Fungal dermatitis -Start nystatin triamcinolone cream -Outpatient follow-up with PCP if no improvement in 3-4 days -As needed Benadryl -We'll need to dispose of contaminated deodorant Hypertension, controlled -Not taking any medications currently -Follow blood pressures Hypokalemia -Replace and recheck Leukocytosis -Suspect reactive Dyslipidemia -Statin therapy DVT prophylaxis:early ambulation Discussed with: patient, nursing Anticipated discharge: 1-[address]: home A total of 35 minutes was spent on the care of this complex patient more than 50% of the time was spent in counseling and care coordination.
[2018-12-03 21:27] VITALS: RESP 16
[2018-12-04] MEDS ORDERED: diphenhydrAMINE 25 MG CAP PO STA (02:02)
[2018-12-04] MEDS: SODIUM CHLORIDE 0.9% 1,000 ML IV SCH ×2 (02:03→07:45)
[2018-12-04] MEDS: PANTOPRAZOLE 40 MG TABLET PO SCH (06:21)
[2018-12-04 07:08] LABS: HCT 36.3 % (39.0-53.0); HGB 12.3 gm/dL (13.0-17.5); MCH 32.4 pg (25.0-35.0); MCV 95.4 fL (80.0-100.0); Mean Platelet Volume 7.2; Platelet Count 178 k/uL (150-450); RDW 12.9 % (11.5-15.5); WBC 10.5 k/uL (3.8-10.6)
[2018-12-04 08:03] VITALS: BP 124/71; PULSE 97; TEMP 97.7
[2018-12-04] MEDS: NYSTATIN 100,000 UNIT/GM OINT 30 GM TUBE TOPICAL SCH (09:04)
[2018-12-04] MEDS: ATORVASTATIN 10 MG TAB PO SCH (09:04)
[2018-12-04] MEDS: HEPARIN SODIUM,PORCINE 5,000 UNIT/ML 1 ML VIAL SQ SCH (09:04)
[2018-12-04] MEDS: TRIAMCINOLONE ACET 0.1% OINTMENT 15 GM TUBE TOPICAL SCH (09:04)
[2018-12-04 09:26] LABS: African American GFR (CKD) >90 (>60 ml/min/1.73 sqM); Anion Gap 8 mmol/L; Blood Urea Nitrogen 16 mg/dL (9-20); Calcium 8.3 mg/dL (8.4-10.2); Carbon Dioxide 22 mmol/L (22-30); Chloride 108 mmol/L (98-107); Glucose 111 mg/dL (74-99); Potassium 3.6 mmol/L (3.5-5.1); Sodium 138 mmol/L (137-145)
--- NOTE | 2018-12-04 10:32 | P.DS ---
Providers Date of admission: 12/02/18 17:50 Expected date of discharge: 12/04/18 Attending physician: Harvey Salter MD Consults: 12/02/18 17:51 Consult Physician Routine Consulting Provider: Filiberto Tan Consult Reason/Comments: hypotension, bradycardia Do you want consulting provider notified?: Yes Primary care physician: Dillon Maharaj DO Hospital Course: Discharge Diagnosis: Erythema multiform with groin candidal infection Symptomatic bradycardia, related to betablocker use HTN Hypokalemia Leukocytosis HLD Hospital Course: Patient is a 58-year-old male past medical history of hypertension with increase in beta kevan approximately one month ago due to poorly controlled blood pressures, dyslipidemia, and degenerative joint disease who initially presented to the ER with complaints of a pruritic rash. Patient had stated his rash started approximately 2 days prior to admission, he was using multiple antibiotic ointment creams at home without much relief. In the emergency department he was noted to be bradycardiac with the lowest heart rate documented a 47 along with hypotension with a blood pressure of 86/49. He underwent an extensive evaluation in the emergency department. EKG demonstrated sinus bradycardia at a rate of 48, chest x-ray unremarkable, urinalysis revealed some red blood cells, fecal occult blood negative, white blood cell count was 17.4, hemoglobin 15, platelets 229. His beta kevan was held. He received 1 dose of atropine in the ER with improvement in his bradycardia and blood pressure. He was admitted for further observation. He was started on a steroid cream secondary to dermatitis. Current blood pressure remained improved. He was seen by cardiology who recommended holding his beta kevan and initiating KWAKU inhibitor if needed for blood pressure control. Rash appears fungal in nature patient was started on nystatin triamcinolone cream. He had improvement in his groin rash and rash under arms with some spreading to buttocks. His BP and HR remained stable. He was determined stable for discharge home. He will follow with PCP in 1-2 days and with cardio in 2 weeks for out patient echo due to murmur. He will continue with steroid/fungal cream for 7 days and a medrol dose pack. Patient seen and examined at bedside. No chest pain, shortness of breath, dizziness. Rash gone in groin area, some spreading to buttocks and shoulder Vital signs reviewed and stable. General: non toxic, no distress, appears at stated age Derm: erythema with raise scalr ordered on buttocks and axilla groin resolved. Head: atraumatic, normocephalic, symmetric Eyes: EOMI, no lid lag, anicteric sclera Mouth: no lip lesion, mucus membranes moist Cardiovascular: S1S2 reg, no murmur, positive posterior tibial pulse bilateral, Lungs: CTA bilateral, no rhonchi, no rales , no accessory muscle use Abdominal: soft, nontender to palpation, no guarding, no appreciable organomegaly Ext: no gross muscle atrophy, no edema, no contractures Neuro: CN II-XI grossly intact, no focal neuro deficits Psych: Alert, oriented, appropriate affect A total of 35 minutes of time were spent preparing this complex discharge summary . Patient Condition at Discharge: Stable Plan - Discharge Summary Discharge Rx Participant: Yes New Discharge Prescriptions: New Loratadine [Claritin] 10 mg PO DAILY PRN tab PRN Reason: Allergy Symptoms methylPREDNISolone Dose Pack [Medrol Dose Pack] 4 mg PO DIRECTED #21 package Nystatin-Triamcinolone Oint [Mycolog 100,000-0.1 Unit/gm-% Oint] 1 applic TOPICAL BID #1 tube Continue Atorvastatin [Lipitor] 10 mg PO DAILY Hydrocodone/Acetaminophen [[place] 10-325] 1 tab PO TID PRN PRN Reason: Pain Discontinued Metoprolol Tartrate [Lopressor] 50 mg PO BID Pseudoephedrine HCl [Sudafed] 30 mg PO Q4HR PRN PRN Reason: Congestion Multivitamins, Thera [Multivitamin (formulary)] 1 tab PO DAILY Discharge Medication List Atorvastatin [Lipitor] 10 mg PO DAILY 12/02/18 [History] Hydrocodone/Acetaminophen [[place] 10-325] 1 tab PO TID PRN 12/02/18 [History] Loratadine [Claritin] 10 mg PO DAILY PRN tab 12/04/18 [Rx] Nystatin-Triamcinolone Oint [Mycolog 100,000-0.1 Unit/gm-% Oint] 1 applic TOPICAL BID #1 tube 12/04/18 [Rx] methylPREDNISolone Dose Pack [Medrol Dose Pack] 4 mg PO DIRECTED #21 package 12/04/18 [Rx] Follow up Appointment(s)/Referral(s): Dillon Maharaj DO [Primary Care Provider] - 1-2 days Activity/Diet/Wound Care/Special Instructions: Activity: as tolerated Diet: Heart Healthy Wound Care: Apply steroids/fungal cream twice daily for 7 days Special Instructions: If skin becomes blistered larger area infected, or your start having sores in the mouth seek medical attention immediately. Change deodorant stick Shower/bath once daily until rash resolved If blood pressure is elevated on follow-up with Dr. Maharaj could consider addition of ACEI, should not start another agent that can affect heart rate.
--- NOTE | 2018-12-04 11:44 | P.PN ---
Subjective Progress Note Date: 12/04/18 Patient is a 58-year-old male with a past medical history of hypertension and dyslipidemia who presented with a rash. On presentation he was found to be hypotensive and bradycardic, pulse is in the high 40s to low 50s and blood pressures in the 80s over 40s. The patient felt slightly dizzy at that time. He takes metoprolol titrate 50 mg twice a day at home. States that he was increased from 25 mg twice a day to 50 mg twice a day a few months ago and has felt fatigued since. He has also had intermittent dizzy spells. No syncope. No chest pain or shortness of breath. EKG showed sinus bradycardia, inverted T waves in the lateral precordial leads. Chest x-ray was negative for acute process. His metoprolol has been held. Blood pressure has improved, 122/60 today. Heart rate maintained in the 70s. From our perspective he may be able to go home today, we will continue to hold the beta kevan. He can follow-up with Dr. Tan in the office. Objective - Vital Signs Vital signs: Vital Signs Temp 97.7 F 12/04/18 08:00 Pulse 97 12/04/18 08:00 Resp 16 12/04/18 08:00 BP 124/71 12/04/18 08:00 Pulse Ox 97 12/04/18 08:00 Intake & Output 12/03/18 12/04/18 12/04/18 18:59 06:59 18:59 Intake Total 540 240 Output Total 1 Balance 539 240 Weight 87.2 kg Intake: Oral 540 240 Output: Urine 1 Other: Voiding Method Toilet # Voids 1 1 1 - Exam Patient seen and examined sitting up at the side of the bed, in no acute distress Lungs are clear to auscultation bilaterally Heart is regular, soft systolic murmur noted No elevated JVD No lower extremity edema Abdomen soft - Labs CBC & Chem 7: 12/04/18 06:51 12/04/18 06:51 Labs: Abnormal Lab Results - Last 24 Hours (Table) 12/03/18 12/04/18 12/04/18 Range/Units 06:04 06:51 06:51 RBC 3.80 L (4.30-5.90) m/uL Hgb 12.3 L (13.0-17.5) gm/dL Hct 36.3 L (39.0-53.0) % Chloride 108 H (98-107) mmol/L Glucose 111 H (74-99) mg/dL Calcium 8.3 L (8.4-10.2) mg/dL HDL Cholesterol 29 L (40-60) mg/dL Microbiology - Last 24 Hours (Table) 12/02/18 18:14 Blood Culture - Preliminary Blood No Growth after 24 hours Assessment and Plan Plan: Assessment and plan #1 Bradycardia and hypotension likely secondary to metoprolol, blood pressure and heart rate improved with metoprolol on hold #2 Hypertension, blood pressure stable without the metoprolol #3 Dyslipidemia #4 TSH normal Plan From cardiology's perspective, the patient may be able to be discharged home today once cleared by primary, we will continue to hold the beta kevan, follow-up appointment in the office post discharge. DNP note has been reviewed, I agree with a documented findings and plan of care. Patient was seen and examined.
== END 2018-12-04 12:51 | disposition home or self-care (01) | DRG 596 ==
LOC: EC 14:47 → 3SCARD 17:50
PROVIDERS: ADMIT Family Medicine; ATTEND Family Medicine
DX: L51.9 Erythema multiforme, unspecified (principal); B37.2 Candidiasis of skin and nail; B36.9 Superficial mycosis, unspecified; D72.829 Elevated white blood cell count, unspecified; E78.5 Hyperlipidemia, unspecified; E87.6 Hypokalemia; F41.9 Anxiety disorder, unspecified; I10 Essential (primary) hypertension; K21.9 Gastro-esophageal reflux disease without esophagitis; T44.7X5A Adverse effect of beta-adrenoreceptor antagonists, initial encounter; Z79.899 Other long term (current) drug therapy; Z82.5 Family history of asthma and other chronic lower respiratory diseases; Z87.891 Personal history of nicotine dependence; R00.1 Bradycardia, unspecified; I95.2 Hypotension due to drugs
CPT/HCPCS: 36415; 71046; 80048; 80061; 81001; 82272; 83735; 84443; 85025; 85027; 85610; 85730; 86850; 86900; 86901; 87040; 93005; 96361; 96374; 96375; 99284

== ENCOUNTER 2019-12-07 12:26 | Observation (INO) | payer MEDICARE ==
[2019-12-07 13:46] LABS: Basophils % (A) 0 %; Eosinophils # (A) 0.1 k/uL (0-0.7); Eosinophils % (A) 1 %; HGB 13.8 gm/dL (13.0-17.5); Lymphocytes # (A) 2.1 k/uL (1.0-4.8); Lymphocytes % (A) 26 %; MCH 32.6 pg (25.0-35.0); MCHC 34.6 g/dL (31.0-37.0); MCV 94.3 fL (80.0-100.0); Mean Platelet Volume 7.7; Monocytes # (A) 0.5 k/uL (0-1.0); Monocytes % (A) 6 %; Neutrophils # (A) 5.2 k/uL (1.3-7.7); Neutrophils % (A) 65 %; Platelet Count 244 k/uL (150-450); RBC 4.24 m/uL (4.30-5.90); RDW 12.9 % (11.5-15.5)
[2019-12-07 13:58] LABS: ALT 31 U/L (4-49); AST 31 U/L (17-59); African American GFR (CKD) >90 (>60 ml/min/1.73 sqM); Albumin 4.1 g/dL (3.5-5.0); Alkaline Phosphatase 78 U/L (38-126); Anion Gap 9 mmol/L; Blood Urea Nitrogen 13 mg/dL (9-20); Calcium 8.9 mg/dL (8.4-10.2); Carbon Dioxide 29 mmol/L (22-30); Chloride 98 mmol/L (98-107); Glucose 106 mg/dL (74-99); Magnesium 2.2 mg/dL (1.6-2.3); Non-African American GFR(CKD) >90 (>60 ml/min/1.73 sqM); Phosphorus 2.9 mg/dL (2.5-4.5); Sodium 136 mmol/L (137-145); Total Bilirubin 0.7 mg/dL (0.2-1.3); Total Protein 6.9 g/dL (6.3-8.2)
[2019-12-07] MEDS ORDERED: Potassium Replacement Protocol 1 EACH MISC MISCELLANE PRN (14:07)
[2019-12-07 14:08] LABS: Potassium 2.7 mmol/L (3.5-5.1)
[2019-12-07] MEDS ORDERED: POTASSIUM CHLORIDE ER 20 MEQ TAB.ER PO STA ×2 (14:25→18:24)
[2019-12-07] MEDS ORDERED: NALOXONE 0.4 MG/ML 1 ML VIAL IV PRN (14:29)
[2019-12-07] MEDS ORDERED: POTASSIUM CHLORIDE 20 MEQ in WATER FOR INJECTION 1 100ML.BAG IVPB SCH (14:30)
--- NOTE | 2019-12-07 14:30 | ED ---
General Adult HPI - General Chief complaint: Recheck/Abnormal Lab/Rx Stated complaint: Sent by PCP - Low Potassium Time Seen by Provider: 12/07/19 12:36 Source: patient, RN notes reviewed, old records reviewed Mode of arrival: ambulatory Limitations: no limitations - History of Present Illness Initial comments: 59-year-old male patient to ED for evaluation of hypokalemia. Patient reports that he had dental work done 13 teeth removed 2 days ago. He states that he had preoperative labs drawn and he was called by his primary care provider today and told to come her to emergency department because his potassium was dangerously low. He is denying any acute complaints. Systemic: Pt denies fatigue, fever/chills, rash. Pt denies weakness, night sweats, weight loss. Neuro: Pt denies headache, visual disturbances, syncope or pre-syncope. HEENT: Pt denies ocular discharge or irritation, otalgia, rhinorrhea, pharyngitis or notable lymphadenopathy. Cardiopulmonary: Pt denies chest pain, SOB, heart palpitations, dyspnea on exertion. Abdominal/GI: Pt denies abdominal pain, n/v/d. : Pt denies dysuria, burning w/ urination, frequency/urgency. Denies new onset urinary or bowel incontinence. MSK: Pt denies myalgia, loss of strength or function in extremities. Neuro: Pt denies new onset weakness, paresthesias. - Related Data Home Medications Medication Instructions Recorded Confirmed Atorvastatin [Lipitor] 10 mg PO DAILY 12/02/18 12/02/18 Hydrocodone/Acetaminophen [[place] 1 tab PO TID PRN 12/02/18 12/02/18 10-325] Previous Rx's Medication Instructions Recorded Loratadine [Claritin] 10 mg PO DAILY PRN tab 12/04/18 Nystatin-Triamcinolone Oint 1 applic TOPICAL BID #1 tube 12/04/18 [Mycolog 100,000-0.1 Unit/gm-% Oint] methylPREDNISolone Dose Pack 4 mg PO DIRECTED #21 package 12/04/18 [Medrol Dose Pack] Allergies Allergy/AdvReac Type Severity Reaction Status Date / Time Beta-Blockers AdvReac Bradycardia Verified 12/07/19 12:31 (Beta-Adrenergic Bloc in 40's Review of Systems ROS Statement: Those systems with pertinent positive or pertinent negative responses have been documented in the HPI. ROS Other: All systems not noted in ROS Statement are negative. Past Medical History Past Medical History: GERD/Reflux, Hypertension Additional Past Medical History / Comment(s): DDD, chronic back pain History of Any Multi-Drug Resistant Organisms: None Reported Past Surgical History: Orthopedic Surgery Additional Past Surgical History / Comment(s): knee surgery Past Anesthesia/Blood Transfusion Reactions: No Reported Reaction Past Psychological History: Anxiety Smoking Status: Current some day smoker Past Alcohol Use History: None Reported Past Drug Use History: None Reported - Past Family History Father Family Medical History: No Reported History Mother Family Medical History: COPD Additional Family Medical History / Comment(s): from septic shock General Exam - General Exam Comments Initial Comments: Constitutional: NAD, AOX3, Pt has pleasant affect. HEENT: NC/AT, trachea midline, neck supple, no lymphadenopathy. Posterior pharynx non erythematous, without exudates. Dental exam does not display any infection, abscess or drainage. External ears appear normal, without discharge. Mucous membranes moist. Eyes PERRLA, EOM intact. There is no scleral icterus. No pallor noted. Cardiopulmonary: RRR, no murmurs, rubs or gallops, no JVD noted. Lungs CTAB in anterior and posterior banda. No peripheral edema. Abdominal exam: Abdomen soft and non-distended. Abdomen non-tender to palpation in all 4 quadrants. Bowel sounds active in LLQ. No hepatosplenomegaly. No ecchymosis Neuro: CN II-XII grossly intact. No nuchal rigidity. MSK: Full active ROM in upper and lower extremities, 5/5 stregnth. Limitations: no limitations Course Vital Signs 12/07/19 12/07/19 12:27 13:31 Temperature 99.2 F Pulse Rate 79 61 Respiratory 18 18 Rate Blood Pressure 125/77 122/81 O2 Sat by Pulse 98 95 Oximetry Medical Decision Making - Medical Decision Making 59-year-old male patient ED for hypokalemia. Asymptomatic. Patient's vital signs stable, afebrile. Physical exam negative for acute pathology. Labs investigations revealed hypokalemia 2.7. EKG nonischemic. Patient will be admitted for hypokalemia. Case discussed with Dr. Sandhu. - Lab Data Result diagrams: 12/07/19 13:32 12/07/19 13:32 Lab Results 12/07/19 12/07/19 Range/Units 13:32 13:32 WBC 8.0 (3.8-10.6) k/uL RBC 4.24 L (4.30-5.90) m/uL Hgb 13.8 (13.0-17.5) gm/dL Hct 40.0 (39.0-53.0) % MCV 94.3 (80.0-100.0) fL MCH 32.6 (25.0-35.0) pg MCHC 34.6 (31.0-37.0) g/dL RDW 12.9 (11.5-15.5) % Plt Count 244 (150-450) k/uL Neutrophils % 65 % Lymphocytes % 26 % Monocytes % 6 % Eosinophils % 1 % Basophils % 0 % Neutrophils # 5.2 (1.3-7.7) k/uL Lymphocytes # 2.1 (1.0-4.8) k/uL Monocytes # 0.5 (0-1.0) k/uL Eosinophils # 0.1 (0-0.7) k/uL Basophils # 0.0 (0-0.2) k/uL Sodium 136 L (137-145) mmol/L Potassium 2.7 L* (3.5-5.1) mmol/L Chloride 98 (98-107) mmol/L Carbon Dioxide 29 (22-30) mmol/L Anion Gap 9 mmol/L BUN 13 (9-20) mg/dL Creatinine 0.79 (0.66-1.25) mg/dL Est GFR (CKD-EPI)AfAm >90 (>60 ml/min/1.73 sqM) Est GFR (CKD-EPI)NonAf >90 (>60 ml/min/1.73 sqM) Glucose 106 H (74-99) mg/dL Calcium 8.9 (8.4-10.2) mg/dL Phosphorus 2.9 (2.5-4.5) mg/dL Magnesium 2.2 (1.6-2.3) mg/dL Total Bilirubin 0.7 (0.2-1.3) mg/dL AST 31 (17-59) U/L ALT 31 (4-49) U/L Alkaline Phosphatase 78 (38-126) U/L Total Protein 6.9 (6.3-8.2) g/dL Albumin 4.1 (3.5-5.0) g/dL Disposition Clinical Impression: Hypokalemia Disposition: ADMITTED IP TO THIS HOSP Condition: Fair Is patient prescribed a controlled substance at d/c from ED?: No Referrals: Dillon Maharaj DO [Primary Care Provider] - 1-2 days
[2019-12-07] MEDS: POTASSIUM CHLORIDE 10 MEQ in WATER FOR INJECTION 1 100ML.BAG IVPB SCH ×4 (14:57→23:29)
[2019-12-07] MEDS ORDERED: HYDROcodone/APAP 10-325MG 1 EACH TAB PO ONE (15:43)
[2019-12-07] MEDS ORDERED: POTASSIUM CHLORIDE ER 20 MEQ TAB.ER PO SCH (16:00)
[2019-12-07] MEDS ORDERED: FLUTICASONE 50MCG/SPRAY NASAL 16GM EA NOSTRIL PRN (18:22)
[2019-12-07] MEDS ORDERED: LORATADINE 10 MG TAB PO PRN (18:22)
[2019-12-07] MEDS ORDERED: ALPRAZolam 0.25 MG TAB PO PRN (19:47)
[2019-12-07] MEDS ORDERED: TEMAZEPAM 15 MG CAP PO PRN (19:47)
[2019-12-07] MEDS: HYDROcodone/APAP 10-325MG 1 EACH TAB PO PRN (20:05)
[2019-12-07] MEDS: AMOXIC-POT CLAV 875-125MG 1 EACH TAB PO SCH (20:07)
[2019-12-07] MEDS: HEPARIN SODIUM,PORCINE 5,000 UNIT/ML 1 ML VIAL SQ SCH (20:09)
[2019-12-07] MEDS: CHLORHEXIDINE GLUCONATE 15 ML CUP MUCOUS MEM SCH (20:57)
[2019-12-07] MEDS ORDERED: CHLORHEXIDINE GLUCONATE PO SCH (21:00)
[2019-12-07] MEDS: POTASSIUM CHLORIDE ER 20 MEQ TAB.ER PO SCH (21:59)
--- NOTE | 2019-12-07 22:02 | HP ---
HISTORY AND PHYSICAL CHIEF COMPLAINT: Hypokalemia. HISTORY OF PRESENT ILLNESS: This 59-year-old gentleman being followed by Dr. Maharaj in the outpatient setting has a past medical history of GERD, hypertension, DJD, orthopedic surgery, anxiety. The patient apparently had a blood workup yesterday followed by dental extraction, and today the patient was called at home to say that his blood work was showing severe hypokalemia. Patient came to [facility]. Potassium was 2.7. Patient was admitted for further evaluation and treatment. There is no history of any fever, rigor or chills. No history of headache, loss of consciousness, seizures. PAST MEDICAL HISTORY: GERD, hypertension, DJD, history of anxiety. HOME MEDICATIONS: Omeprazole, Claritin, [place], fluticasone, chlorthalidone, Peridex, Augmentin. ALLERGIES: BETA BLOCKERS. FAMILY HISTORY: History of septic shock in the family. SOCIAL HISTORY: Previous history of smoking. No current smoking or alcohol intake. REVIEW OF SYSTEMS: ENT: As mentioned earlier. CARDIOVASCULAR SYSTEM: No angina, palpitations. RESPIRATORY SYSTEM: No cough, hemoptysis. GI: No nausea, vomiting. : No dysuria or retention. NERVOUS SYSTEM: No numbness, weakness. ALLERGY/IMMUNOLOGY: No asthma, hayfever. MUSCULOSKELETAL: As mentioned earlier. HEMATOLOGY/ONCOLOGY: No history of anemia. ENDOCRINE: As mentioned earlier. CONSTITUTIONAL: As mentioned earlier. DERMATOLOGY: Negative. RHEUMATOLOGY: Negative. PSYCHIATRY: As mentioned earlier. PHYSICAL EXAMINATION: Patient alert and oriented x3. Pulse 70, blood pressure 139/95, respirations 16, temperature 99.2, pulse ox 96% on room air. HEENT: Conjunctivae normal. Oral mucosa moist. NECK: No jugular venous distention. No carotid bruit. No lymph node enlargement. CARDIOVASCULAR SYSTEM: S1, S2 muffled. No S3. No S4. RESPIRATORY SYSTEM: Breath sounds diminished at the bases. No rhonchi. No crackles. ABDOMEN: Soft, non-tender. No mass palpable. LEGS: No edema. No swelling. NERVOUS SYSTEM: Higher functions as mentioned earlier. Moves all 4 limbs. No focal motor or sensory deficit. LYMPHATICS: No lymph node palpable in neck, axillae or groin. SKIN: No ulcer, rash, bleeding. JOINTS: No active deforming arthropathy. LABS: WBC 8, hemoglobin 13.8. Sodium 137, potassium 2.7. ASSESSMENT: 1. Severe hypokalemia, possibly medication-induced. 2. Hyponatremia. 3. History of recent dental extraction. 4. Gastroesophageal reflux disease. 5. Hypertension. 6. Chronic back pain, degenerative joint disease. 7. History of anxiety. RECOMMENDATIONS AND DISCUSSION: In this 59-year-old gentleman who presented with multiple complex medical issues, we will monitor the patient closely, continue the current medications, continue symptomatic treatment. Potassium supplementation protocol. Repeat potassium. Will hold the [place] at this time and continue to monitor. Check magnesium. Prognosis guarded because of multiple complex medical issues. Further recommendations to follow. MMODL / IJN: [id number] /
[2019-12-08] MEDS: POTASSIUM CHLORIDE ER 20 MEQ TAB.ER PO SCH ×5 (00:10→12:51)
[2019-12-08 03:59] VITALS: PULSE 70
[2019-12-08 05:02] LABS: Basophils % (A) 1 %; Eosinophils # (A) 0.1 k/uL (0-0.7); Eosinophils % (A) 1 %; HCT 39.5 % (39.0-53.0); HGB 13.3 gm/dL (13.0-17.5); Lymphocytes # (A) 1.9 k/uL (1.0-4.8); Lymphocytes % (A) 26 %; MCHC 33.5 g/dL (31.0-37.0); MCV 95.3 fL (80.0-100.0); Mean Platelet Volume 7.6; Monocytes # (A) 0.4 k/uL (0-1.0); Monocytes % (A) 6 %; Neutrophils # (A) 4.7 k/uL (1.3-7.7); Neutrophils % (A) 65 %; Platelet Count 229 k/uL (150-450); RBC 4.15 m/uL (4.30-5.90); RDW 12.9 % (11.5-15.5); WBC 7.2 k/uL (3.8-10.6)
[2019-12-08 05:14] LABS: African American GFR (CKD) >90 (>60 ml/min/1.73 sqM); Anion Gap 7 mmol/L; Blood Urea Nitrogen 10 mg/dL (9-20); Calcium 8.9 mg/dL (8.4-10.2); Carbon Dioxide 28 mmol/L (22-30); Chloride 102 mmol/L (98-107); Glucose 116 mg/dL (74-99); Magnesium 2.2 mg/dL (1.6-2.3); Non-African American GFR(CKD) >90 (>60 ml/min/1.73 sqM); Potassium 3.3 mmol/L (3.5-5.1); Sodium 137 mmol/L (137-145)
[2019-12-08] MEDS: HYDROcodone/APAP 10-325MG 1 EACH TAB PO PRN (05:36)
[2019-12-08] MEDS ORDERED: PANTOPRAZOLE 40 MG TABLET PO SCH (07:30)
[2019-12-08] MEDS: AMOXIC-POT CLAV 875-125MG 1 EACH TAB PO SCH (08:03)
[2019-12-08] MEDS: HEPARIN SODIUM,PORCINE 5,000 UNIT/ML 1 ML VIAL SQ SCH (08:04)
[2019-12-08 08:43] VITALS: BP 116/77; RESP 16; TEMP 98.1
[2019-12-08] MEDS ORDERED: CHLORTHALIDONE 25 MG TAB PO SCH (09:00)
[2019-12-08] MEDS ORDERED: POTASSIUM CHLORIDE 20 MEQ in WATER FOR INJECTION 1 100ML.BAG IVPB STA (11:58)
[2019-12-08] MEDS: CHLORHEXIDINE GLUCONATE 15 ML CUP MUCOUS MEM SCH (11:58)
--- NOTE | 2019-12-08 17:51 | DS ---
DISCHARGE SUMMARY FINAL DIAGNOSES: 1. Severe hypokalemia, possibly medication and diuretic induced. 2. Hyponatremia. 3. History of recent dental extraction. 4. Hypertension. 5. Chronic back pain DJD. 6. History of anxiety. DISCHARGE CONDITION: The patient will be discharged in stable condition with guarded prognosis. HISTORY OF PRESENT ILLNESS: This 59-year-old gentleman with a past medical history of multiple medical problems was admitted with severe hypokalemia 2.7. The potassium was replaced and the patient improved significantly. The patient is keen on going home. Stable condition with guarded. Diuretics held. Potassium 3.3. DISCHARGE INSTRUCTIONS: 1. Diet is cardiac. 2. Activity limited. 3. Followup with primary physician in 2-3 days with CBC, BMP. MEDICATIONS: 1. Augmentin 1 p.o. b.i.d. q.8 hours. 2. Flonase nasal spray as before. 3. Hydrocodone as before. 4. Omeprazole 40 mg daily. 5. Peridex 15 mL b.i.d. 6. Claritin as before. Monitor blood pressure and other parameters with the primary physician. MMODL / IJN: [id number] /
== END 2019-12-08 13:10 | disposition home or self-care (01) ==
LOC: EC 12:26 → 3NCARDOBS 15:03
PROVIDERS: ADMIT Hospitalist; ATTEND Hospitalist
DX: E87.6 Hypokalemia (principal); E87.1 Hypo-osmolality and hyponatremia; Z98.890 Other specified postprocedural states; I10 Essential (primary) hypertension; K21.9 Gastro-esophageal reflux disease without esophagitis; G89.29 Other chronic pain; M19.90 Unspecified osteoarthritis, unspecified site; M54.9 Dorsalgia, unspecified; F41.9 Anxiety disorder, unspecified; F17.200 Nicotine dependence, unspecified, uncomplicated; Z79.899 Other long term (current) drug therapy; Z88.8 Allergy status to other drugs, medicaments and biological substances; Z82.5 Family history of asthma and other chronic lower respiratory diseases; Z83.1 Family history of other infectious and parasitic diseases
CPT/HCPCS: 96366 ×2; 96376; 96365; 99285; 36415; 93005; 80053; 80048; 83735 ×2; 84100; 84132; 85025 ×2; G0378 ×2; J3480 ×2; 96360; 96361

== ENCOUNTER 2019-12-31 14:19 | Emergency (ER) | payer MEDICARE ==
[2019-12-31 14:30] VITALS: BP 145/81; PULSE 73; RESP 18; TEMP 97.7
--- NOTE | 2019-12-31 15:24 | XR ---
EXAMINATION TYPE: XR hand complete LT DATE OF EXAM: 12/31/2019 COMPARISON: NONE HISTORY: Pain TECHNIQUE: Three views are submitted. FINDINGS: The osseous structures are intact. Mild narrowing of the MCP joints. Mild narrowing of the PIP joints . No erosive changes.. IMPRESSION: 1. No definite acute fracture or dislocation if symptoms persist, follow-up study in 7 to 10 days wo uld be suggested
--- NOTE | 2019-12-31 15:29 | ED ---
Upper Extremity HPI - General Chief Complaint: Extremity Injury, Upper Stated Complaint: L Thumb Injury Time Seen by Provider: 12/31/19 14:39 Source: patient Mode of arrival: ambulatory Limitations: no limitations - History of Present Illness Initial Comments: Patient is a 59-year-old male presenting to the emergency Department with complaints of pain in his left thumb. 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 Patient states today he continues to have pain and stiffness and is worried he might a fractured his thumb. Patient denies any previous injuries or surgeries of his left hand or thumb. He denies any fever or chills. He has no further complaints at this time. - Related Data Home Medications Medication Instructions Recorded Confirmed Hydrocodone/Acetaminophen [[place] 1 tab PO Q8H PRN 12/02/18 12/07/19 10-325] Amoxic-Pot Clav 875-125Mg 1 tab PO Q8H 12/07/19 12/07/19 [Augmentin 875-125] Chlorhexidine Gluconate [Peridex] 15 ml PO BID 12/07/19 12/07/19 Fluticasone Nasal [place] [Flonase 1 spr EA NOSTRIL DAILY PRN 12/07/19 12/07/19 Nasal [place]] Omeprazole 40 mg PO DAILY 12/07/19 12/07/19 Previous Rx's Medication Instructions Recorded Loratadine [Claritin] 10 mg PO DAILY PRN tab 12/04/18 Allergies Allergy/AdvReac Type Severity Reaction Status Date / Time Beta-Blockers AdvReac Bradycardia Verified 12/07/19 14:34 (Beta-Adrenergic Bloc in 40's Review of Systems ROS Statement: Those systems with pertinent positive or pertinent negative responses have been documented in the HPI. ROS Other: All systems not noted in ROS Statement are negative. Past Medical History Past Medical History: GERD/Reflux, Hypertension Additional Past Medical History / Comment(s): DDD, chronic back pain History of Any Multi-Drug Resistant Organisms: None Reported Past Surgical History: Orthopedic Surgery Additional Past Surgical History / Comment(s): knee surgery Past Anesthesia/Blood Transfusion Reactions: No Reported Reaction Past Psychological History: Anxiety Smoking Status: Former smoker Past Alcohol Use History: None Reported Past Drug Use History: None Reported - Past Family History Father Family Medical History: No Reported History Mother Family Medical History: COPD Additional Family Medical History / Comment(s): from septic shock General Exam - General Exam Comments Initial Comments: GENERAL: Patient is well-developed and well-nourished. Patient is nontoxic and in no acute distress. HEAD: Atraumatic, normocephalic. EYES: Pupils equal round and reactive to light, extraocular movements intact, sclera anicteric, conjunctiva are normal. Eyelids were unremarkable. ENT: TMs normal, nares patent, oropharynx clear without exudates. Moist mucous membranes. NECK: Normal range of motion, supple without lymphadenopathy or JVD. LUNGS: Unlabored respirations. Breath sounds clear to auscultation bilaterally and equal. No wheezes rales or rhonchi. HEART: Regular rate and rhythm without murmurs, rubs or gallops. ABDOMEN: Soft, nontender, normoactive bowel sounds. No guarding, no rebound. No masses appreciated. : Deferred MUSCULOSKELETAL: Patient has mild swelling along the base of the left thumb, decreased range of motion with opposition and extension. He does have pain throughout the base of the thumb and into the first IP joint. There is no obvious deformity. No pain of the left wrist or rest of the left hand. Her vascular intact. No clubbing or cyanosis. NEUROLOGICAL: Patient is alert and oriented x 3. Motor and sensory are also intact. Normal speech, normal gait. PSYCH: Normal mood, normal affect. SKIN: Warm, Dry, normal turgor, no rashes or lesions noted. Limitations: no limitations Course Vital Signs 12/31/19 14:27 Temperature 97.7 F Pulse Rate 73 Respiratory 18 Rate Blood Pressure 145/81 O2 Sat by Pulse 98 Oximetry Medical Decision Making - Medical Decision Making Patient is a 59-year-old male here for left thumb pain after injury at work yesterday. No previous history of injury. X-rays today revealed no definite a cute fracture dislocation. Recommend follow-up study if symptoms persist. I discussed these findings with the patient. I did recommend a splint or brace for patient declined at this time. He stated to follow-up with his PCP if symptoms persist. He is stable for discharge. Return parameters were discussed with the patient and he verbalized understanding. Disposition Clinical Impression: Sprain of left thumb, Pain of left thumb Disposition: HOME SELF-CARE Condition: Stable Instructions (If sedation given, give patient instructions): Finger Sprain (ED) Additional Instructions: Please return to the Emergency Department if symptoms worsen or any other concerns. May use Motrin, ice to the area. Follow-up with PCP as symptoms persist. Is patient prescribed a controlled substance at d/c from ED?: No Referrals: Dillon Maharaj DO [Primary Care Provider] - 1-2 days
== END 2019-12-31 16:22 | disposition home or self-care (01) ==
LOC: EC 14:19
DX: S63.602A Unspecified sprain of left thumb, initial encounter (principal); K21.9 Gastro-esophageal reflux disease without esophagitis; G89.29 Other chronic pain; M54.9 Dorsalgia, unspecified; Z79.899 Other long term (current) drug therapy; Z88.8 Allergy status to other drugs, medicaments and biological substances; Z87.891 Personal history of nicotine dependence; Y92.69 Other specified industrial and construction area as the place of occurrence of the external cause; Y99.0 Civilian activity done for income or pay
CPT/HCPCS: 99283

== ENCOUNTER 2022-05-11 17:03 | Emergency (ER) | payer MEDICARE ==
[2022-05-11 17:18] VITALS: BP 154/82; TEMP 98.8
[2022-05-11] MEDS ORDERED: DIPH,PERTUS(ACELL)TETVAC-LF 0.5 ML VIAL IM ONE (17:37)
[2022-05-11] MEDS ORDERED: TOPICAL SKIN ADHESIVE 1 EACH AMP TOPICAL ONE (17:37)
--- NOTE | 2022-05-11 18:53 | XR ---
EXAMINATION TYPE: XR finger LT DATE OF EXAM: 05/11/2022 COMPARISON: NONE HISTORY: Laceration TECHNIQUE: 3 views FINDINGS: There is some soft tissue deformity on the medial aspect of the DIP joint of the little fin nando that could be a laceration. No foreign body seen. No fracture seen. IMPRESSION: Mild soft tissue deformity. No fracture.
--- NOTE | 2022-05-11 19:06 | ED ---
Wound/Laceration HPI - General Chief Complaint: Wound/Laceration Stated Complaint: finger cut Time Seen by Provider: 05/11/22 17:27 Source: patient Mode of arrival: ambulatory Limitations: no limitations - History of Present Illness Initial Comments: Patient is a 61-year-old male presenting with chief complaint of laceration. Patient states that he was working on a car today during an engine repair when he obtained small laceration. Laceration is superficial in nature, leading is well-controlled at this time. Patient does not remember when his last tetanus shot was. No numbness or tingling. Patient has full range of motion of the finger. - Related Data Home Medications Medication Instructions Recorded Confirmed Hydrocodone/Acetaminophen [[place] 1 tab PO Q8H PRN 12/02/18 12/07/19 10-325] Amoxic-Pot Clav 875-125Mg 1 tab PO Q8H 12/07/19 12/07/19 [Augmentin 875-125] Chlorhexidine Gluconate [Peridex] 15 ml PO BID 12/07/19 12/07/19 Fluticasone Nasal [place] [Flonase 1 spr EA NOSTRIL DAILY PRN 12/07/19 12/07/19 Nasal [place]] Omeprazole 40 mg PO DAILY 12/07/19 12/07/19 Previous Rx's Medication Instructions Recorded Loratadine [Claritin] 10 mg PO DAILY PRN tab 12/04/18 Allergies Allergy/AdvReac Type Severity Reaction Status Date / Time Beta-Blockers AdvReac Bradycardia Verified 05/11/22 17:18 (Beta-Adrenergic Bloc in 40's Review of Systems ROS Statement: Those systems with pertinent positive or pertinent negative responses have been documented in the HPI. ROS Other: All systems not noted in ROS Statement are negative. Past Medical History Past Medical History: GERD/Reflux, Hypertension Additional Past Medical History / Comment(s): DDD, chronic back pain History of Any Multi-Drug Resistant Organisms: None Reported Past Surgical History: Orthopedic Surgery Additional Past Surgical History / Comment(s): knee surgery Past Anesthesia/Blood Transfusion Reactions: No Reported Reaction Past Psychological History: Anxiety Smoking Status: Current every day smoker Past Alcohol Use History: None Reported Past Drug Use History: Marijuana - Past Family History Father Family Medical History: No Reported History Mother Family Medical History: COPD Additional Family Medical History / Comment(s): from septic shock General Exam Limitations: no limitations General appearance: alert, in no apparent distress Head exam: Present: atraumatic, normocephalic, normal inspection Eye exam: Present: normal appearance Neck exam: Present: normal inspection, full ROM Neurological exam: Present: alert, oriented X3, CN II-XII intact Psychiatric exam: Present: normal affect, normal mood Skin exam: Present: warm, dry, normal color. Absent: rash Expanded Type of lesion: Present: laceration (superficial laceration to the L 5th finger) Course Vital Signs 05/11/22 05/11/22 17:15 19:16 Temperature 98.8 F Pulse Rate 53 L 62 Respiratory 18 16 Rate Blood Pressure 154/82 O2 Sat by Pulse 98 97 Oximetry Procedures - Laceration Laceration #1 Consent Obtained: verbal consent Indication: laceration Site: hand (L 5th finger) Description: flap Depth: simple, single layer Type of Sutures: other (exofin) Patient Tolerated Procedure: well Medical Decision Making - Medical Decision Making Was pt. sent in by a medical professional or institution (Dr. PA, STRETCHER OPERATOR, urgent care, hospital, or half-way...) When possible be specific @ -No Did you speak to anyone other than the patient for history (EMS, parent, family, police, friend...)? What history was obtained from this source @ -No Did you review nursing and triage notes (agree or disagree)? Why? @ -I reviewed and agree with nursing and triage notes Were old charts reviewed (outside hosp., previous admission, EMS record, old EKG, old radiological studies, urgent care reports/EKG's, half-way records)? Report findings @ -No old charts were reviewed Differential Diagnosis (chest pain, altered mental status, abdominal pain women, abdominal pain men, vaginal bleeding, weakness, fever, dyspnea, syncope, headache, dizziness, GI bleed, back pain, seizure, CVA, palpatations, mental health, musculoskeletal)? @ -not applicable EKG interpreted by me (3pts min.). @ -As above X-rays interpreted by me (1pt min.). @ -Xray showed no fracture or dislocation CT interpreted by me (1pt min.). @ -None done U/S interpreted by me (1pt. min.). @ -None done What testing was considered but not performed or refused? (CT, X-rays, U/S, labs)? Why? @ -None What meds were considered but not given or refused? Why? @ -None Did you discuss the management of the patient with other professionals (professionals i.e. , PA, STRETCHER OPERATOR, lab, RT, psych nurse, social studies teacher, director of medical services, teacher, loan officer assistant, case reviewer)? Give summary @ -No Was smoking cessation discussed for >3mins.? @ -No Was critical care preformed (if so, how long)? @ -No Were there social determinants of health that impacted care today? How? (Homelessness, low income, unemployed, alcoholism, drug addiction, transportation, low edu. Level, literacy, decrease access to med. care, snf, rehab)? @ -No Was there de-escalation of care discussed even if they declined (Discuss DNR or withdrawal of care, Hospice)? DNR status @ -No What co-morbidities impacted this encounter? (DM, HTN, Smoking, COPD, CAD, Cancer, CVA, ARF, Chemo, Hep., AIDS, mental health diagnosis, sleep apnea, morbid obesity)? @ -None Was patient admitted / discharged? Hospital course, mention meds given and route, prescriptions, significant lab abnormalities, going to OR and other pertinent info. @ -Patient is a 61-year-old male presenting with chief complaint of laceration to left fifth finger. On physical examination laceration is superficial, x-ray shows no evidence of fracture or foreign body. Laceration is repaired using exofin. Patient is educated on wound care. Follow-up with PCP. Report back to ER with any new or worsening symptoms. Discussed return parameters and answered all questions. Patient conveyed verbal understanding and agreed to the plan. I discussed this case in detail with my attending Dr. Gonzalez Undiagnosed new problem with uncertain prognosis? @ -No Drug Therapy requiring intensive monitoring for toxicity (Heparin, Nitro, Insulin, Cardizem)? @ -No Were any procedures done? @ -Laceration repair, see procedure note Diagnosis/symptom? @ -laceration Acute, or Chronic, or Acute on Chronic? @ -Acute Uncomplicated (without systemic symptoms) or Complicated (systemic symptoms)? @ -uncomplicated Side effects of treatment? @ -No Exacerbation, Progression, or Severe Exacerbation? @ -No Poses a threat to life or bodily function? How? (Chest pain, [place], [place], pneumonia, PE, COPD, DKA, ARF, appy, cholecystitis, CVA, Diverticulitis, Homicidal, Suicidal, threat to staff... and all critical care pts) @ -No Disposition Clinical Impression: Laceration Disposition: HOME SELF-CARE Condition: Good Instructions (If sedation given, give patient instructions): Finger Laceration (ED), Skin Adhesive Care (ED), Steristrips (ED) Additional Instructions: Follow-up with PCP. Report back to ER with any new or worsening symptoms. Monitor for signs of infection, including but not limited to redness, swelling, pain, discharge, fever, chills. Keep the wound clean and dry and covered. Avoid fully submerging the wound. Clean with soap and water. Do not apply Neosporin or other ointment-based products as this will break down the skin adhesive. Is patient prescribed a controlled substance at d/c from ED?: No Referrals: Dillon Maharaj DO [Primary Care Provider] - 1-2 days Time of Disposition: 19:06
[2022-05-11 19:18] VITALS: PULSE 62; RESP 16
== END 2022-05-11 19:18 | disposition home or self-care (01) ==
LOC: EC 17:03
DX: S61.317A Laceration without foreign body of left little finger with damage to nail, initial encounter (principal); K21.9 Gastro-esophageal reflux disease without esophagitis; I10 Essential (primary) hypertension; F41.9 Anxiety disorder, unspecified; F17.200 Nicotine dependence, unspecified, uncomplicated; F12.90 Cannabis use, unspecified, uncomplicated; Z88.8 Allergy status to other drugs, medicaments and biological substances; Z23 Encounter for immunization; Z79.899 Other long term (current) drug therapy; W31.83XA Contact with special construction vehicle in stationary use, initial encounter; Y92.810 Car as the place of occurrence of the external cause
CPT/HCPCS: 12001; 90471; 90715; 99283